=== PATIENT | female | born 1995 | race Caucasian/White ===

== ENCOUNTER → 2019-09-24 15:57 | Observation (INO) ==
[2019-09-24 14:27] LABS: Amphetamine Screen,Urine Negative ng/mL (Cutoff=1000); Barbiturate Screen,Urine Negative ng/mL (Cutoff=200); Benzodiazepines Screen,Urine Negative ng/mL (Cutoff=200); Cannabinoid Screen,Urine Negative ng/mL (Cutoff = 50); Cocaine Screen,Urine Negative ng/mL (Cutoff= 300); Opiate Screen,Urine Negative ng/mL (Cutoff=300); Phencyclidine Screen,Urine Negative ng/mL (Cutoff=25)
[~2019-09-24 15:57] MED LIST: Acetaminophen/Butalbital/CaffeineTABLET PO PRN; Ringers Solution, Lactated 1,000 ML IVC ONE
== END | disposition home or self-care (01) ==
LOC: 1NENULAB
PROVIDERS: ADMIT Advanced Practice Midwife; ATTEND Advanced Practice Midwife

== ENCOUNTER 2019-10-10 23:19 | Observation (INO) ==
[2019-10-10] MEDS ORDERED: Ringers Solution, Lactated 1,000 ML IVC ONE (23:43)
[2019-10-11 00:25] LABS: Basophils % 0.1 %; Eosinophils # 0.2 K/mcL (0.0-0.6); Eosinophils % 2.2 %; Hematocrit 36.4 % (35.3-44.9); Hemoglobin 12.1 g/dL (11.5-15.4); Immature Granulocytes % 0.4 % (0-4); Lymphocytes % 29.1 %; Mean Corpuscular HGB Conc 33.2 g/dL (31.6-35.5); Mean Corpuscular Hemoglobin 28.4 pg (28.0-33.3); Mean Corpuscular Volume 85.4 fL (83.0-100.0); Mean Platelet Volume 12.3 fL (9.4-12.4); Monocytes # 0.8 K/mcL (0.0-1.3); Monocytes % 7.8 %; Neutrophils # 6.2 K/mcL (1.6-8.9); Platelet Count 210 K/mcL (140-400); Red Blood Count 4.26 M/mcL (3.82-4.97); Red Cell Distribution Width 13.3 % (11.5-14.5); Segmented Neutrophils % 60.4 %; White Blood Count 10.2 K/mcL (4.3-11.1)
[2019-10-11] MEDS ORDERED: *HR* Promethazine 25 MG/ML VIAL IM ONE (00:49)
[2019-10-11] MEDS ORDERED: *HR* Nalbuphine 10 MG/ML AMPUL IM ONE (00:50)
[2019-10-11 01:13] LABS: Bilirubin,Urine Negative (Negative); Blood,Urine Negative (Negative); Clarity,Urine Clear (Clear); Color,Urine Yellow (Yellow); Glucose,Urine (UA) Normal (Normal); Ketones,Urine Negative (Negative); Leukocyte Esterase,Urine Negative (Negative); Nitrite,Urine Negative (Negative); Protein,Urine Trace mg/dL (Neg-Trace); Specific Gravity,Urine > 1.030 (1.010-1.025); Urobilinogen,Urine Normal (Normal)
== END 2019-10-11 01:45 | disposition home or self-care (01) ==
LOC: 1NENULAB
PROVIDERS: ADMIT Advanced Practice Midwife; ATTEND Advanced Practice Midwife

== ENCOUNTER 2019-10-17 11:10 | Inpatient (IN) ==
[2019-10-17] MEDS ORDERED: Metoclopramide 10 MG/2 ML VIAL IVP PRN (11:12)
[2019-10-17] MEDS ORDERED: Famotidine 20 MG/2 ML VIAL IVP PRN (11:12)
[2019-10-17] MEDS ORDERED: Naloxone 0.4 MG/ML INJ IVP PRN (11:12)
[2019-10-17] MEDS ORDERED: Lidocaine 1% 20 ML MDV ID PRN (11:12)
[2019-10-17] MEDS ORDERED: *HR* Nalbuphine 10 MG/ML AMPUL IVP PRN (11:12)
[2019-10-17] MEDS ORDERED: Ringers Solution, Lactated 1,000 ML IVC SCH (11:15)
[2019-10-17 12:27] LABS: Basophils % 0.4 %; Eosinophils # 0.1 K/mcL (0.0-0.6); Eosinophils % 1.2 %; Hematocrit 39.5 % (35.3-44.9); Hemoglobin 13.6 g/dL (11.5-15.4); Immature Granulocytes % 0.5 % (0-4); Lymphocytes # 2.5 K/mcL (0.6-4.6); Lymphocytes % 23.6 %; Mean Corpuscular HGB Conc 34.4 g/dL (31.6-35.5); Mean Corpuscular Hemoglobin 28.6 pg (28.0-33.3); Mean Platelet Volume 12.8 fL (9.4-12.4); Monocytes # 0.7 K/mcL (0.0-1.3); Monocytes % 6.3 %; Neutrophils # 7.2 K/mcL (1.6-8.9); Platelet Count 235 K/mcL (140-400); Red Blood Count 4.76 M/mcL (3.82-4.97); Red Cell Distribution Width 13.5 % (11.5-14.5); White Blood Count 10.6 K/mcL (4.3-11.1)
[2019-10-17 12:37] LABS: Amphetamine Screen,Urine Negative ng/mL (Cutoff=1000); Barbiturate Screen,Urine Negative ng/mL (Cutoff=200); Benzodiazepines Screen,Urine Negative ng/mL (Cutoff=200); Cannabinoid Screen,Urine Negative ng/mL (Cutoff = 50); Cocaine Screen,Urine Negative ng/mL (Cutoff= 300); Opiate Screen,Urine Negative ng/mL (Cutoff=300); Phencyclidine Screen,Urine Negative ng/mL (Cutoff=25)
[2019-10-17] MEDS ORDERED: Penicillin G Potassium 5,000,000 UNIT in 0.9 % Sodium Chloride Mini Bag 100 ML IVPB ONE (12:52)
[2019-10-17] MEDS ORDERED: miSOPROStoL 25 MCG TABLET VG SCH (13:00)
[2019-10-17] MEDS ORDERED: Penicillin G Potassium 2,500,000 UNIT in 0.9 % Sodium Chloride 100 ML IVPB SCH (16:00)
[2019-10-18] MEDS ORDERED: Ringers Solution, Lactated 1,000 ML IVC ONE (05:41)
[2019-10-18] MEDS ORDERED: Clindamycin 900 MG/50 ML 900 MG/50 ML IV.SOLN IVPB ONE (05:41)
[2019-10-18] MEDS ORDERED: Gentamicin 350 MG in 0.9 % Sodium Chloride 100 ML IVPB ONE (05:41)
[2019-10-18] MEDS ORDERED: *HR* FentaNYL (PF) 100 MCG/2 ML VIAL ONE (05:56)
[2019-10-18] MEDS ORDERED: *HR* Morphine Sulfate/PF 10 MG/10 ML AMPUL ONE (05:56)
[2019-10-18] MEDS ORDERED: Oxytocin 20 units/ LR 1000 mL 40 UNIT/2,000 ML BAG IVC ONE (05:57)
[2019-10-18] MEDS ORDERED: EPHEDrine 50 MG/ML VIAL ONE (06:03)
[2019-10-18] MEDS ORDERED: *HR* Phenylephrine 10 MG/ML VIAL ONE (06:06)
[2019-10-18] MEDS ORDERED: Dexamethasone 4 MG/ML VIAL ONE (06:14)
[2019-10-18] MEDS ORDERED: Ketorolac 30 MG/ML VIAL ONE (06:14)
[2019-10-18] MEDS ORDERED: Ondansetron 4 MG/2 ML VIAL ONE (06:14)
[2019-10-18] MEDS ORDERED: Oxytocin 20 units/ LR 1000 mL 20 UNIT/1,000 ML BAG IVC SCH (10:33)
[2019-10-18] MEDS ORDERED: *HR* OxyCODONE/APAP 5/325 TABLET PO PRN (10:33)
[2019-10-18] MEDS ORDERED: *HR* OxyCODONE Immed Rel 5 MG TABLET PO PRN (10:33)
[2019-10-18] MEDS ORDERED: Metoclopramide 10 MG/2 ML VIAL IVP PRN (10:33)
[2019-10-18] MEDS ORDERED: Acetaminophen 325 MG TABLET PO PRN (10:33)
[2019-10-18] MEDS ORDERED: Simethicone 80 MG TAB.CHEW PO PRN (10:33)
[2019-10-18] MEDS ORDERED: Ondansetron 4 MG/2 ML VIAL IVP PRN (10:33)
[2019-10-18] MEDS ORDERED: Sennosides 8.6 MG TABLET PO PRN (10:33)
[2019-10-18] MEDS ORDERED: Rho Immune Globulin 1,500 UNIT SYRINGE IM ONE (10:33)
[2019-10-18] MEDS: metroNIDAZOLE 500 MG TABLET PO SCH (15:51)
[2019-10-19] MEDS: Ibuprofen 600 MG TABLET PO PRN ×3 (02:58→22:59)
[2019-10-19 06:23] LABS: Basophils % 0.2 %; Eosinophils # 0.1 K/mcL (0.0-0.6); Eosinophils % 0.7 %; Immature Granulocytes % 0.4 % (0-4); Lymphocytes # 2.9 K/mcL (0.6-4.6); Mean Corpuscular HGB Conc 32.5 g/dL (31.6-35.5); Mean Corpuscular Hemoglobin 28.9 pg (28.0-33.3); Mean Corpuscular Volume 88.9 fL (83.0-100.0); Mean Platelet Volume 11.7 fL (9.4-12.4); Monocytes # 0.8 K/mcL (0.0-1.3); Monocytes % 8.2 %; Neutrophils # 6.2 K/mcL (1.6-8.9); Platelet Count 170 K/mcL (140-400); Red Cell Distribution Width 13.6 % (11.5-14.5); Segmented Neutrophils % 61.5 %; White Blood Count 10.1 K/mcL (4.3-11.1)
[2019-10-19 06:25] LABS: Hemoglobin 10.4 g/dL (11.5-15.4)
[2019-10-19] MEDS: metroNIDAZOLE 500 MG TABLET PO SCH ×5 (09:56→22:55)
[2019-10-19] MEDS: Prenatal Vit/FA 1 EACH TABLET PO SCH ×2 (09:56→22:51)
[2019-10-20] MEDS: Prenatal Vit/FA 1 EACH TABLET PO SCH (08:19)
[2019-10-20] MEDS: Ibuprofen 600 MG TABLET PO PRN (08:20)
[2019-10-20 08:35] VITALS: BP 129/87
[2019-10-20] MEDS ORDERED: metroNIDAZOLE 500 MG TABLET PO SCH (09:00)
[2019-10-20] MEDS ORDERED: Lidocaine/EPI 1:100k 1% 30 ML VIAL INFILT ONE (13:04)
[2019-10-20] MEDS ORDERED: Etonogestrel 68 MG IMPLANT IL ONE (13:04)
== END 2019-10-20 15:18 | disposition home or self-care (01) | DRG 540 ==
LOC: 1NENULAB 11:10 → 1NENUOBS 10-18 09:24
PROVIDERS: ADMIT Registered Nurse; ATTEND Registered Nurse